=== PATIENT | male | born 1955 | race African-American/Black ===

== ENCOUNTER 2022-05-26 21:09 | Inpatient (IN) | payer OTHER ==
[2022-05-26 22:33] VITALS: RESP 18; BMI 20.5
[2022-05-26] MEDS ORDERED: chlordiazePOXIDE HCL 25 MG CAPSULE PO SCH (23:00)
[2022-05-26] MEDS ORDERED: ACETAMINOPHEN 325 MG TABLET (FP) PO PRN ×2 (23:09)
[2022-05-26] MEDS ORDERED: NALOXONE HCL (KLOXXADO) 8 MG SPRAY NS PRN (23:09)
[2022-05-26] MEDS ORDERED: guaiFENesin 200 MG/10 ML 10 ML UNIT-DOSE CUPS PO PRN (23:09)
[2022-05-26] MEDS ORDERED: METHOCARBAMOL 500 MG TABLET PO PRN (23:09)
[2022-05-26] MEDS ORDERED: ONDANSETRON *ODT* 4 MG TABLET SL PRN (23:09)
[2022-05-26] MEDS ORDERED: P-EPHED 60MG/TRIPROLIDI 2.5MG TABLET PO PRN (23:09)
[2022-05-26] MEDS ORDERED: DICYCLOMINE HCL 10 MG CAPSULE PO PRN (23:09)
[2022-05-26] MEDS ORDERED: IBUPROFEN 600 MG TABLET (FP) PO PRN (23:09)
[2022-05-26] MEDS ORDERED: NICOTINE POLACRILEX 4 MG GUM BUC PRN (23:09)
[2022-05-26] MEDS ORDERED: BISMUTH SUBSALICYLATE 524 MG/30 ML PO PRN (23:09)
[2022-05-26] MEDS ORDERED: MAGNESIUM HYDROX 2400MG/30ML ORAL SUSPENSION 30 ML CUP PO PRN (23:09)
[2022-05-26] MEDS ORDERED: MAG HYDROX/AL HYDROX/SIMETH 30 ML UNIT-DOSE CUP PO PRN (23:09)
[2022-05-26] MEDS ORDERED: NALOXONE HCL 0.4 MG/ML VIAL IM PRN (23:09)
[2022-05-26] MEDS ORDERED: LOPERAMIDE HCL 2 MG CAPSULE PO PRN (23:09)
[2022-05-26] MEDS ORDERED: chlordiazePOXIDE HCL 25 MG CAPSULE PO PRN (23:09)
[2022-05-26] MEDS ORDERED: MAGNESIUM CITRATE 300 ML BOTTLE PO PRN (23:09)
[2022-05-26] MEDS ORDERED: BENZOCAINE/MENTHOL (CHLORASEPTIC ) LOZENGE MM PRN (23:09)
[2022-05-26] MEDS ORDERED: IBUPROFEN 400 MG TABLET (FP) PO PRN (23:09)
[2022-05-26] MEDS ORDERED: cloNIDine HCL 0.1 MG TABLET PO PRN (23:23)
[2022-05-26] MEDS ORDERED: cloNIDine HCL 0.1 MG TABLET ONE (23:47)
[2022-05-26] MEDS ORDERED: chlordiazePOXIDE HCL 25 MG CAPSULE ONE (23:47)
[2022-05-27] MEDS ORDERED: METHOCARBAMOL 500 MG TABLET ONE (01:28)
[2022-05-27] MEDS ORDERED: LORazepam 2 MG/ML SDV VIAL IM ONE ×2 (02:55→03:05)
[2022-05-27 03:28] VITALS: BP 143/73; PULSE 88; TEMP 97.6
[2022-05-27] MEDS ORDERED: PRENATAL VITAMINS W/ FOLIC ACID TABLET (FP) PO SCH (10:00)
[2022-05-27] MEDS ORDERED: THIAMINE HCL 100 MG TABLET (FP) PO SCH (22:00)
[2022-05-27] MEDS ORDERED: MELATONIN 5 MG TABLETS PO SCH (22:00)
[2022-05-28] MEDS ORDERED: chlordiazePOXIDE HCL 25 MG CAPSULE PO SCH (05:00)
[2022-05-29] MEDS ORDERED: chlordiazePOXIDE HCL 10 MG CAPSULE PO PRN
[2022-05-29] MEDS ORDERED: chlordiazePOXIDE HCL 10 MG CAPSULE PO SCH (05:00)
[2022-05-30] MEDS ORDERED: chlordiazePOXIDE HCL 10 MG CAPSULE PO SCH (05:00)
[2022-05-31] MEDS ORDERED: chlordiazePOXIDE HCL 10 MG CAPSULE PO ONE (05:00)
== END 2022-05-27 08:00 | disposition short-term general hospital (02) | DRG 897 ==
LOC: YASAS 21:09 → Y3N 23:33
PROVIDERS: ADMIT Allergy & Immunology; ATTEND Surgery
PROC: HZ2ZZZZ Detoxification Services for Substance Abuse Treatment (ICD-10-PCS; principal; 2022-05-26)
DX: F10.230 Alcohol dependence with withdrawal, uncomplicated (principal); F13.20 Sedative, hypnotic or anxiolytic dependence, uncomplicated; F14.10 Cocaine abuse, uncomplicated; F41.9 Anxiety disorder, unspecified; F32.A Depression, unspecified; Z21 Asymptomatic human immunodeficiency virus [HIV] infection status; R56.9 Unspecified convulsions; R41.82 Altered mental status, unspecified; Z79.84 Long term (current) use of oral hypoglycemic drugs; Z87.891 Personal history of nicotine dependence
CPT/HCPCS: 82962

== ENCOUNTER 2022-05-27 03:32 | Inpatient (IN) | payer OTHER ==
[2022-05-27] MEDS ORDERED: LACTATED RINGERS SOLUTION 1000 ML INFUS.BAG IV ONE (03:46)
[2022-05-27] MEDS ORDERED: DIPHTH,PERTUSS(ACELL),TET 0.5 ML DISP.SYRIN IM ONE ×2 (03:55→04:18)
[2022-05-27 04:51] LABS: BASO % 0.2 % (0-2.0); EOS % 0.2 % (0-4.5); HEMATOCRIT 40.5 % (35.4-49); HEMOGLOBIN 12.7 GM/dL (11.7-16.9); LYMPH % 15.9 % (8-40); MCH 24.6 pg (25.7-33.7); MCHC 31.3 g/dl (32.0-35.9); MEAN CELL VOLUME 78.6 fl (80-96); MEAN PLT VOLUME 8.6 fl (7.5-11.1); MONO % 11.7 % (3.8-10.2); PLATELET COUNT 165 10^3/uL (134-434); RBC 5.16 M/mm3 (4.00-5.60); RDW 15.5 % (11.9-15.9); WHITE BLOOD COUNT 4.5 K/mm3 (4.0-10.0)
[2022-05-27 05:10] LABS: INR 1.15 (0.83-1.09); PROTHROMBIN TIME (PATIENT) 13.2 SEC (9.7-13.0)
[2022-05-27 05:13] LABS: ACTIVATED PTT 28.8 SECONDS (25.2-36.5); CALCIUM 9.5 mg/dL (8.5-10.1)
[2022-05-27 05:14] LABS: BLOOD UREA NITROGEN 11.7 mg/dL (7-18)
[2022-05-27 05:15] LABS: MAGNESIUM 2.2 mg/dL (1.8-2.4)
[2022-05-27 05:17] LABS: CREATININE 1.1 mg/dL (0.55-1.3)
[2022-05-27 05:18] LABS: BILIRUBIN,TOTAL 0.4 mg/dL (0.2-1); TOT PROT 6.9 g/dl (6.4-8.2)
[2022-05-27] MEDS ORDERED: THIAMINE HCL 200 MG/2 ML VIAL IVPB ONE (07:14)
[2022-05-27] MEDS ORDERED: LORazepam 2 MG/ML SDV VIAL IVPUSH ONE (07:14)
[2022-05-27] MEDS ORDERED: THIAMINE HCL 200 MG/2 ML VIAL ONE (07:32)
[2022-05-27] MEDS ORDERED: chlordiazePOXIDE HCL 25 MG CAPSULE PO PRN ×2 (08:22→09:19)
[2022-05-27] MEDS ORDERED: ACETAMINOPHEN 325 MG TABLET (FP) PO PRN (08:25)
[2022-05-27] MEDS ORDERED: chlordiazePOXIDE HCL 10 MG CAPSULE PO PRN (09:18)
[2022-05-27] MEDS ORDERED: MULTIVITAMINS (DAILY MVI) TABLET (FP) ONE (10:14)
[2022-05-27] MEDS ORDERED: ATORVASTATIN CA 10 MG TABLET (FP) ONE (10:14)
[2022-05-27] MEDS ORDERED: LISINOPRIL 20 MG TABLET ONE (10:14)
[2022-05-27] MEDS ORDERED: FOLIC ACID 1 MG TABLET (FP) ONE (10:14)
[2022-05-27] MEDS ORDERED: ENOXAPARIN NA (PORCINE) 40 MG/0.4 ML DISP.SYRIN SQ ONE (10:15)
[2022-05-27] MEDS: LISINOPRIL 20 MG TABLET PO SCH ×2 (10:25→21:24)
[2022-05-27] MEDS: FOLIC ACID 1 MG TABLET (FP) PO SCH (10:25)
[2022-05-27] MEDS: ENOXAPARIN NA (PORCINE) 40 MG/0.4 ML DISP.SYRIN SQ SCH (10:25)
[2022-05-27] MEDS: MULTIVITAMINS (DAILY MVI) TABLET (FP) PO SCH (10:25)
[2022-05-27] MEDS: ATORVASTATIN CA 10 MG TABLET (FP) PO SCH (10:25)
[2022-05-27] MEDS: BICTEGRAV/EMTRICIT/TENOFOV (BIKTARVY) 50-200-25 MG TABLET PO SCH (10:55)
[2022-05-27] MEDS: INSULIN SLIDING SCALE (NOVOLOG) 1 VIAL SQ SCH ×3 (14:59→21:26)
[2022-05-27] MEDS ORDERED: chlordiazePOXIDE HCL 25 MG CAPSULE ONE (16:45)
[2022-05-27] MEDS: chlordiazePOXIDE HCL 25 MG CAPSULE PO SCH ×2 (16:57→22:34)
[2022-05-27] MEDS: THIAMINE HCL 100 MG TABLET (FP) PO SCH (21:24)
[2022-05-27] MEDS: LORazepam 2 MG/ML SDV VIAL IVPUSH PRN (21:24)
[2022-05-28] MEDS: chlordiazePOXIDE HCL 25 MG CAPSULE PO SCH ×4 (05:55→23:36)
[2022-05-28] MEDS: INSULIN SLIDING SCALE (NOVOLOG) 1 VIAL SQ SCH ×4 (06:00→22:28)
[2022-05-28 08:14] LABS: HEMATOCRIT 40.2 % (35.4-49); HEMOGLOBIN 12.7 GM/dL (11.7-16.9); MCH 24.9 pg (25.7-33.7); MCHC 31.6 g/dl (32.0-35.9); MEAN CELL VOLUME 78.6 fl (80-96); MEAN PLT VOLUME 8.3 fl (7.5-11.1); PLATELET COUNT 163 10^3/uL (134-434); RBC 5.11 M/mm3 (4.00-5.60); RDW 15.6 % (11.9-15.9); WHITE BLOOD COUNT 4.6 K/mm3 (4.0-10.0)
[2022-05-28 09:08] LABS: CALCIUM 9.3 mg/dL (8.5-10.1)
[2022-05-28 09:09] LABS: BLOOD UREA NITROGEN 9.5 mg/dL (7-18); MAGNESIUM 2.2 mg/dL (1.8-2.4)
[2022-05-28 09:12] LABS: CREATININE 0.9 mg/dL (0.55-1.3)
[2022-05-28] MEDS: ATORVASTATIN CA 10 MG TABLET (FP) PO SCH (09:56)
[2022-05-28] MEDS: ENOXAPARIN NA (PORCINE) 40 MG/0.4 ML DISP.SYRIN SQ SCH (09:56)
[2022-05-28] MEDS: FOLIC ACID 1 MG TABLET (FP) PO SCH (09:56)
[2022-05-28] MEDS: MULTIVITAMINS (DAILY MVI) TABLET (FP) PO SCH (09:57)
[2022-05-28] MEDS: LISINOPRIL 20 MG TABLET PO SCH ×2 (09:57→21:46)
[2022-05-28] MEDS: BICTEGRAV/EMTRICIT/TENOFOV (BIKTARVY) 50-200-25 MG TABLET PO SCH (09:57)
[2022-05-28] MEDS: LORazepam 2 MG/ML SDV VIAL IVPUSH PRN ×3 (11:12→21:47)
[2022-05-28] MEDS: THIAMINE HCL 100 MG TABLET (FP) PO SCH (21:46)
[2022-05-29] MEDS ORDERED: LOPERAMIDE HCL 2 MG CAPSULE PO ONE ×2 (02:36→03:45)
[2022-05-29] MEDS: LORazepam 2 MG/ML SDV VIAL IVPUSH PRN ×2 (04:12→10:56)
[2022-05-29] MEDS: chlordiazePOXIDE HCL 25 MG CAPSULE PO SCH ×4 (04:21→22:30)
[2022-05-29] MEDS: INSULIN SLIDING SCALE (NOVOLOG) 1 VIAL SQ SCH ×4 (06:21→22:35)
[2022-05-29 07:54] LABS: HEMATOCRIT 41.2 % (35.4-49); HEMOGLOBIN 13.1 GM/dL (11.7-16.9); MCHC 31.8 g/dl (32.0-35.9); MEAN CELL VOLUME 78.6 fl (80-96); MEAN PLT VOLUME 8.5 fl (7.5-11.1); PLATELET COUNT 171 10^3/uL (134-434); RBC 5.24 M/mm3 (4.00-5.60); RDW 15.4 % (11.9-15.9); WHITE BLOOD COUNT 5.3 K/mm3 (4.0-10.0)
[2022-05-29] MEDS ORDERED: POTASSIUM CHLORIDE ORAL LIQUID 20 MEQ/15 ML PO ONE (08:28)
[2022-05-29 08:37] LABS: BLOOD UREA NITROGEN 9.4 mg/dL (7-18); CALCIUM 9.5 mg/dL (8.5-10.1); MAGNESIUM 2.4 mg/dL (1.8-2.4)
[2022-05-29 08:38] LABS: BILIRUBIN,TOTAL 0.4 mg/dL (0.2-1); TOT PROT 7.1 g/dl (6.4-8.2)
[2022-05-29 08:40] LABS: PHOSPHOROUS 2.6 mg/dL (2.5-4.9)
[2022-05-29] MEDS: MULTIVITAMINS (DAILY MVI) TABLET (FP) PO SCH (09:25)
[2022-05-29] MEDS: FOLIC ACID 1 MG TABLET (FP) PO SCH (09:25)
[2022-05-29] MEDS: BICTEGRAV/EMTRICIT/TENOFOV (BIKTARVY) 50-200-25 MG TABLET PO SCH (09:25)
[2022-05-29] MEDS: ATORVASTATIN CA 10 MG TABLET (FP) PO SCH (09:25)
[2022-05-29] MEDS: LISINOPRIL 20 MG TABLET PO SCH ×2 (09:25→22:27)
[2022-05-29] MEDS: ENOXAPARIN NA (PORCINE) 40 MG/0.4 ML DISP.SYRIN SQ SCH (09:25)
[2022-05-29] MEDS: ACETAMINOPHEN 325 MG TABLET (FP) PO PRN (10:12)
[2022-05-29 20:09] LABS: HIV INTERPRETATION PRESUMPTIVE POSITIVE (NEGATIVE)
[2022-05-29] MEDS: THIAMINE HCL 100 MG TABLET (FP) PO SCH (22:27)
[2022-05-30] MEDS ORDERED: chlordiazePOXIDE HCL 10 MG CAPSULE PO PRN
[2022-05-30] MEDS: INSULIN SLIDING SCALE (NOVOLOG) 1 VIAL SQ SCH ×4 (06:37→22:15)
[2022-05-30] MEDS: chlordiazePOXIDE HCL 10 MG CAPSULE PO SCH ×4 (06:38→22:09)
[2022-05-30 08:19] LABS: HEMATOCRIT 41.8 % (35.4-49); HEMOGLOBIN 13.1 GM/dL (11.7-16.9); MCH 24.5 pg (25.7-33.7); MCHC 31.2 g/dl (32.0-35.9); MEAN CELL VOLUME 78.6 fl (80-96); MEAN PLT VOLUME 8.7 fl (7.5-11.1); PLATELET COUNT 183 10^3/uL (134-434); RBC 5.32 M/mm3 (4.00-5.60); RDW 15.4 % (11.9-15.9); WHITE BLOOD COUNT 6.3 K/mm3 (4.0-10.0)
[2022-05-30 08:44] LABS: BLOOD UREA NITROGEN 7.9 mg/dL (7-18); CALCIUM 9.4 mg/dL (8.5-10.1)
[2022-05-30 08:47] LABS: CREATININE 1.1 mg/dL (0.55-1.3)
[2022-05-30] MEDS: BICTEGRAV/EMTRICIT/TENOFOV (BIKTARVY) 50-200-25 MG TABLET PO SCH (09:03)
[2022-05-30] MEDS: ENOXAPARIN NA (PORCINE) 40 MG/0.4 ML DISP.SYRIN SQ SCH (09:03)
[2022-05-30] MEDS: LISINOPRIL 20 MG TABLET PO SCH ×2 (09:04→22:10)
[2022-05-30] MEDS: FOLIC ACID 1 MG TABLET (FP) PO SCH (09:04)
[2022-05-30] MEDS: ATORVASTATIN CA 10 MG TABLET (FP) PO SCH (09:04)
[2022-05-30] MEDS: MULTIVITAMINS (DAILY MVI) TABLET (FP) PO SCH (09:04)
[2022-05-30] MEDS: ACETAMINOPHEN 325 MG TABLET (FP) PO PRN (12:03)
[2022-05-30 15:12] VITALS: RESP 18
[2022-05-30] MEDS ORDERED: LORazepam 2 MG/ML SDV VIAL IVPUSH PRN (15:17)
[2022-05-30] MEDS ORDERED: ACETAMINOPHEN 325 MG TABLET (FP) PO PRN (15:17)
[2022-05-30] MEDS ORDERED: THIAMINE HCL 100 MG TABLET (FP) PO SCH (22:00)
[2022-05-31] MEDS: LORazepam 2 MG/ML SDV VIAL IVPUSH PRN ×2 (02:15→12:06)
[2022-05-31] MEDS ORDERED: chlordiazePOXIDE HCL 10 MG CAPSULE PO SCH ×2 (05:00)
[2022-05-31] MEDS: INSULIN SLIDING SCALE (NOVOLOG) 1 VIAL SQ SCH ×2 (06:21→11:11)
[2022-05-31 08:54] VITALS: BP 157/82; PULSE 71; TEMP 98.6
[2022-05-31] MEDS ORDERED: ENOXAPARIN NA (PORCINE) 40 MG/0.4 ML DISP.SYRIN SQ SCH (10:00)
[2022-05-31] MEDS ORDERED: ATORVASTATIN CA 10 MG TABLET (FP) PO SCH (10:00)
[2022-05-31] MEDS ORDERED: FOLIC ACID 1 MG TABLET (FP) PO SCH (10:00)
[2022-05-31] MEDS ORDERED: BICTEGRAV/EMTRICIT/TENOFOV (BIKTARVY) 50-200-25 MG TABLET PO SCH (10:00)
[2022-05-31] MEDS ORDERED: MULTIVITAMINS (DAILY MVI) TABLET (FP) PO SCH (10:00)
[2022-05-31] MEDS: LISINOPRIL 20 MG TABLET PO SCH (10:30)
[2022-06-01] MEDS ORDERED: chlordiazePOXIDE HCL 10 MG CAPSULE PO ONE ×2 (05:00)
== END 2022-05-31 15:14 | disposition left against medical advice (07) | DRG 101 ==
LOC: JER 03:32 → JERBED 08:02 → J4W 20:43 → J7W 05-29 15:45
PROVIDERS: ADMIT Internal Medicine; ATTEND Internal Medicine
PROC: HZ2ZZZZ Detoxification Services for Substance Abuse Treatment (ICD-10-PCS; principal; 2022-05-27)
DX: R56.9 Unspecified convulsions (principal); F11.23 Opioid dependence with withdrawal; F13.139 Sedative, hypnotic or anxiolytic abuse with withdrawal, unspecified; E11.9 Type 2 diabetes mellitus without complications; I10 Essential (primary) hypertension; I35.1 Nonrheumatic aortic (valve) insufficiency; B19.20 Unspecified viral hepatitis C without hepatic coma; E78.5 Hyperlipidemia, unspecified; I51.7 Cardiomegaly; Z94.5 Skin transplant status; I49.3 Ventricular premature depolarization; F17.210 Nicotine dependence, cigarettes, uncomplicated; E87.6 Hypokalemia; Z22.1 Carrier of other intestinal infectious diseases
CPT/HCPCS: 36415; 70450-TC; 71045-TC-FY; 72125-TC; 80048; 80053; 80061; 82962; 83036; 83735; 84100; 84146; 84484; 85025; 85027; 85610; 85730; 86359; 86360; 86850; 86900; 86901; 87389; 90715; 93005; 93010; 95816; 97116-GP; 97161-GP; 99285-25; C9803-CS; U0003; U0005